=== PATIENT | male | born 1990 | race Hispanic/Latino ===

== ENCOUNTER 2018-03-28 08:09 | Emergency (ER) | payer OTHER ==
[~2018-03-28] VITALS: Ht 165.1 cm; Wt 67.4 kg
[~2018-03-28 08:09] MED LIST: DOXYCYCL HYC100 MG PO
[2018-03-28] MEDS ORDERED: FLEXERIL PO ×2 (10:10→10:49)
[2018-03-28] MEDS ORDERED: TORADOL PO ×2 (10:10→10:49)
[2018-03-28 10:39] VITALS: BP 135/86
== END 2018-03-28 10:40 | disposition home or self-care (01) | DRG 563 ==
LOC: ED 08:09
DX: S29.012A Strain of muscle and tendon of back wall of thorax, initial encounter (principal); W11.XXXA Fall on and from ladder, initial encounter; Y93.89 Activity, other specified; Y92.74 Orchard as the place of occurrence of the external cause; Y99.0 Civilian activity done for income or pay